=== PATIENT | male | born 1975 | race Caucasian/White ===

== ENCOUNTER 2019-01-24 13:28 | Outpatient (CLI) | payer BC ==
--- NOTE | 2019-01-24 14:56 | MRI ---
EXAM: MRI left knee PROVIDED CLINICAL HISTORY: Pain COMPARISON: None FINDINGS: The anterior cruciate ligament, posterior cruciate ligament, medial collateral ligament and lateral c ollateral ligamentous complex demonstrate an intact MR appearance, as does the extensor mechanism. 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 The medial meniscus demonstrates no ev idence for tear. There is full-thickness articular cartilage loss involving the central weightbearing portions of the medial femorotibial joint. Articular cartilage appears otherwise preserved. There is a mild-moderate knee joint effusion. No focal concerning regional marrow or muscular signal abnormality apparent. IMPRESSION: 1. 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 3. Mild-moderate knee joint effusion.
== END 2019-01-24 13:29 | disposition home or self-care (01) ==
LOC: BICMRI 13:28
PROVIDERS: ATTEND Family Medicine
DX: M25.562 Pain in left knee (principal); M25.462 Effusion, left knee; M25.862 Other specified joint disorders, left knee

== ENCOUNTER 2019-07-07 11:31 | Emergency (ER) | payer BC ==
[2019-07-07] MEDS ORDERED: predniSONE 20 MG TAB ONE (12:07)
--- NOTE | 2019-07-07 12:28 | CT ---
CT OF BRAIN PERFORMED WITHOUT CONTRAST ENHANCEMENT: Date: 07/07/2019 HISTORY: Right-sided numbness. FINDINGS: The ventricular and cisternal system is within normal limits. There are no signs of intracerebral hem orrhage or extra-axial fluid collections. The mastoid air cells and visualized sinuses are clear. IMPRESSION: No acute intracranial abnormalities. POS: [facility]BAL[facility]
[2019-07-07] MEDS ORDERED: Ibuprofen 800 MG TAB ONE (12:30)
== END 2019-07-07 12:32 | disposition home or self-care (01) ==
LOC: ERS 11:31
DX: G51.0 Bell's palsy (principal); E11.9 Type 2 diabetes mellitus without complications; Z87.891 Personal history of nicotine dependence
CPT/HCPCS: 70450; J7512

== ENCOUNTER 2025-01-21 18:53 | Emergency (ER) | payer BC, OTHER ==
[2025-01-21] MEDS ORDERED: Ondansetron PF 4 MG/2 ML Vial ONE (18:59)
[2025-01-21] MEDS ORDERED: Ketorolac Tromethamine 30 MG (1 mL) VIAL ONE (19:26)
[2025-01-21 19:35] LABS: Hematocrit 43.7 % (42.0-52.0); Hemoglobin 14.9 g/dL (14.0-18.0); Mean Corpuscular Hemoglobin 30.5 pg (27.0-31.0); Mean Corpuscular Volume 89.5 fL (78.0-98.0); Platelet Count 131 10x3/uL (130-400); Red Blood Cell (RBC) Count 4.88 mill/uL (4.70-6.10); White Blood Cell (WBC) Count 15.75 10x3/uL (4.8-10.8)
[2025-01-21 19:39] LABS: ALT (SGPT) 33 U/L (Less than 45); AST (SGOT) 27 U/L (11-34); Albumin 5.0 g/dL (3.1-4.5); Alkaline Phosphatase 75 U/L (40-110); Anion Gap 19 mmol/L (10-20); BUN (Urea Nitrogen) 20 mg/dL (8.9-20.6); Bilirubin, Total 0.8 mg/dL (0.3-1.2); CK (CPK) 483 U/L (30-200); Calc. Creatinine Clearance 0 mL/min (70-130); Calcium 10.0 mg/dL (7.8-10.44); Carbon Dioxide 24 mmol/L (22-29); Chloride 98 mmol/L (98-107); Globulin 2.6 g/dL (2.4-3.5); Glucose 394 mg/dL (70-105); Lipase 20 U/L (8-78); Magnesium 1.9 mg/dL (1.6-2.6); Potassium 4.7 mmol/L (3.5-5.1); Sodium 136 mmol/L (136-145)
[2025-01-21 19:57] LABS: Platelet Adequacy Comment Platelets Normal; Polychromasia SLIGHT = 2-3 cells HPF (0-2); Smudge Cells 3.0 %
== END 2025-01-21 21:23 | disposition home or self-care (01) ==
LOC: ERS 18:53
DX: E86.0 Dehydration (principal); N17.9 Acute kidney failure, unspecified; E11.9 Type 2 diabetes mellitus without complications; F17.210 Nicotine dependence, cigarettes, uncomplicated
CPT/HCPCS: 80053; 82550; 83690; 83735; 85025; 96361; 96374; J1885; J2405